=== PATIENT | male | born 1995 | race Caucasian/White ===

== ENCOUNTER 2023-09-12 15:58 | Emergency (ER) | payer MEDICAID ==
[~2023-09-12] VITALS: Ht 170.2 cm; Wt 109.8 kg
[2023-09-12 17:00] VITALS: BP 132/88; PULSE 98; RESP 18; TEMP 98.2; O2SAT 96
[2023-09-12] MEDS: KETOROLAC 30 MG/ML VIAL IM ONE (17:57)
[2023-09-12] MEDS ORDERED: NAPR-54 PO (18:08)
[2023-09-12 18:29] VITALS: BP 132/88; PULSE 98; RESP 18; TEMP 98.2; O2SAT 96
== END 2023-09-12 18:28 | disposition home or self-care (01) ==
LOC: MED 15:58
DX: S63.591A Other specified sprain of right wrist, initial encounter (principal); R03.0 Elevated blood-pressure reading, without diagnosis of hypertension; Z79.899 Other long term (current) drug therapy; X58.XXXA Exposure to other specified factors, initial encounter; Y93.89 Activity, other specified; Y92.89 Other specified places as the place of occurrence of the external cause; Y99.8 Other external cause status
CPT/HCPCS: 73110; 96372; 99283; J1885